=== PATIENT | male | born 1965 | race Caucasian/White ===

== ENCOUNTER → 2017-01-12 | Outpatient (CLI) | payer BC ==
[~2017-01-12] MED LIST: ALPHA-LIPOIC AC50 MG PO; ASPIR 8181 MG PO; B-1100 MG PO; CLORAZEPATE D3.75 MG PO; FOLIC ACID1 MG PO; HYDROCHLOROTHIA50 MG PO; LEVEMIR100 UNIT/1 SQ; LIPITOR TAB 2020 MG PO; LOPRESSOR 50 MG50 MG PO; MELATONIN5 M2 PO; METOPROLOL TART25 MG PO; MICROZIDE12.5 MG PO; NORVASC 5 MG TAB5 MG PO; NOVOLOG 10100 UNITS/ SQ; PAXIL20 MG PO; PHENERGAN 25 MG25 M1 PO; THERAGRAN TAB1 EA PO; ZESTRIL10 MG PO; ZESTRIL20 MG PO; ZETIA10 MG PO; [UNRECOGNIZED DRUG - CODE]
== END ==
LOC: KOH-I 15:41
DX: M54.5 Low back pain (principal); M47.896 Other spondylosis, lumbar region
CPT/HCPCS: 72110